=== PATIENT | male | born 1995 | race American Indian/Alaskan Native ===

== ENCOUNTER 2016-09-22 01:01 | Emergency (ER) | payer SELFPAY ==
[2016-09-22] MEDS ORDERED: NACL 0.9% 1000 ML 2,000 ML ONE (01:03)
[2016-09-22] MEDS ORDERED: NACL 0.9% 1000 ML 1,000 ML IV ONE (01:09)
[2016-09-22] MEDS ORDERED: TENIVAC IM ONE (01:09)
[2016-09-22] MEDS ORDERED: ceFAZolin 2 GM in NACL 0.9% 100 ML IV ONE (01:09)
[2016-09-22 01:16] LABS: Basophils % (Auto) 0.3 % (0.0-1.8); Hematocrit 42.6 % (35.5-45.6); Hemoglobin 13.7 gm/dl (11.8-15.2); Mean Corpuscular HGB Conc 32 % (32-34); Mean Corpuscular Volume 71 fl (84-94); Platelet Count 234 K/mm3 (140-440); Red Blood Count 5.96 M/mm3 (3.65-5.03); Red Cell Distribution Width 15.5 % (13.2-15.2)
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
[2016-09-22 01:34] LABS: BUN/Creatinine Ratio 11.11; Blood Urea Nitrogen 10 mg/dL (9-20); Calcium 8.8 mg/dL (8.4-10.2); Carbon Dioxide 22 mmol/L (22-30); Chloride 99.8 mmol/L (98-107); Creatine Kinase 508 units/L (55-170); Glucose 122 mg/dL (75-100); Sodium 141 mmol/L (137-145)
[2016-09-22 01:39] LABS: Mean Corpuscular Hemoglobin 23 pg (28-32)
[2016-09-22 01:40] LABS: INR 0.94 (0.87-1.13)
[2016-09-22 01:41] LABS: Partial Thromboplastin Time 23.1 Sec. (24.2-36.6)
[2016-09-22 01:44] LABS: Anion Gap 22 mmol/L
[2016-09-22 01:45] LABS: Potassium 2.9 mmol/L (3.6-5.0)
[2016-09-22] MEDS ORDERED: VITAMIN B-1 100 MG, FOLVITE 1 MG, INFUVITE 10 ML in NACL 0.9% 1000 ML 1,000 ML IV ONE (02:01)
[2016-09-22] MEDS ORDERED: K-DUR PO ONE ×2 (02:01→04:35)
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
[2016-09-22] MEDS ORDERED: MORPHINE ONE (02:18)
[2016-09-22 03:01] LABS: RBC,Urine < 1.0 /HPF (0.0-6.0); WBC,Urine < 1.0 /HPF (0.0-6.0)
[2016-09-22 03:37] LABS: Bilirubin,Urine Negative (Negative); Blood,Urine Negative (Negative); Ketones,Urine Negative (Negative); PH,Urine 7.5 (5.0-7.0); Protein,Urine <15 mg/dL mg/dL (Negative)
[2016-09-22 03:38] LABS: Leukocyte Esterase,Urine Negative (Negative); Nitrite,Urine Negative (Negative); Urobilinogen,Urine 0.2 mg/dL (<2.0)
[2016-09-22] MEDS ORDERED: MORPHINE IV ONE ×2 (04:08→04:43)
[2016-09-22 07:53] VITALS: BP 128/63
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
== END 2016-09-22 05:00 | disposition other institution (70) ==
LOC: ED 01:01
DX: S82.251A Displaced comminuted fracture of shaft of right tibia, initial encounter for closed fracture (principal); S71.102A Unspecified open wound, left thigh, initial encounter; S81.801A Unspecified open wound, right lower leg, initial encounter; S01.80XA Unspecified open wound of other part of head, initial encounter; S82.491A Other fracture of shaft of right fibula, initial encounter for closed fracture; I48.91 Unspecified atrial fibrillation; E87.6 Hypokalemia; W34.00XA Accidental discharge from unspecified firearms or gun, initial encounter; Y93.9 Activity, unspecified; Y92.9 Unspecified place or not applicable; Y99.9 Unspecified external cause status
CPT/HCPCS: 29505; 36415; 70450; 73552; 73590; 80048; 81001; 82140; 82550; 84443; 84484; 85025; 85610; 85730; 90471; 90714; 93005; 93010; 96365; 96366; 96368; 96375; 96376; 99285; G0480; J0690; J2270; J3411; J7030; 80320